=== PATIENT | male | born 1975 | race Caucasian/White ===

== ENCOUNTER 2021-01-13 13:40 | Emergency (ER) | payer MEDICAID, SELFPAY ==
[2021-01-13 13:41] VITALS: BP 112/68; PULSE 84; RESP 16; TEMP 36.6; O2SAT 98; BMI 25.8
--- NOTE | 2021-01-13 13:43 | XR_ITS ---
PROCEDURE: XR CHEST 2V CLINICAL HISTORY: right lower side rib pain COMPARISON: No exams were available for comparison FINDINGS: The cardiomediastinal silhouette and pulmonary vascularity are within normal limits. The lungs are clear without infiltrates, suspicious nodules, or pleural effusions. No acute bony abnormalities. IMPRESSION: No acute findings. Dictated by: Bert Mcguire MD 01/13/2021 14:08 Bert Mcguire MD in [place] 01/13/2021 14:08
--- NOTE | 2021-01-13 13:54 | [facility].EDGENADL ---
ED Disposition Clinical Impression: Chest wall pain Disposition: Home, Self-Care Condition on Discharge: Good Additional Instructions: Return to the emergency room for worsening pain fever cough or any other concerns within the next 8 hours otherwise follow-up with your primary care physician within the next few days Prescriptions: Naproxen Sodium [Naproxen 220mg Tab] 220 mg PO TID 10 Days #20 tab Referrals: Provider,Referral, [Primary Care Provider] - - Critical Care Critical Care Time: No Attestation: On 01/13/21, the high probability of a clinically significant, sudden or life threatening deterioration of the following system(s) required my full and direct attention, intervention and personal management. The time I documented below is in addition to time spent performing reported procedures but includes the following listed in this critical care notation. Medical Decision Making - Medical Records Medical records reviewed: Yes: I reviewed the patient's medical records. - Ronn Inquiry Pt receiving controlled substance: No Vital Signs: 01/13/21 13:41 Temperature 97.8 F Temperature Source Oral Pulse Rate [Radial] 84 Respiratory Rate 16 Blood Pressure [Right Arm] 112/68 Blood Pressure Mean [Right Arm] 82 Blood Pressure Position [Right Arm] Sitting 02 Sat by Pulse Oximetry 98 Oxygen Delivery Method Room Air Orders (Tests/Meds): ED MEDICATIONS Discontinued Medications Generic Name Dose Route Start Last Admin Trade Name Laciq PRN Reason Stop Dose Admin Ketorolac Tromethamine 30 mg 01/13/21 13:43 01/13/21 13:50 Ketorolac 30mg/Ml Vial IV 01/13/21 13:44 30 mg ONCE ONE Administration Lidocaine 1 each 01/13/21 13:44 01/13/21 13:50 Lidocaine 5% Transdermal Patch TP 01/13/21 13:45 1 each ONCE ONE Administration Medical Decision Narrative: 45-year-old male with right lower chest wall pain. He has no acute distress nontoxic-appearing. He has clear breath sounds bilaterally. Chest x-ray was obtained to assess for occult pneumothorax versus displaced rib fracture. No other evidence of pulmonary embolism, pneumonia, myocardial infarction or any other emergency based on history exam and gestalt. Given Toradol for pain Chest x-ray shows no deformed rib fracture and no occult pneumothorax. On reexam he is feeling better after the Toradol. Plan to discharge with incentive spirometry and NSAIDs for pain and return precautions General Adult HPI - General Chief complaint: PAIN Stated complaint: pain Time Seen by Provider: 01/13/21 13:45 Mode of Arrival: EMS Limitations: No Limitations Description of Symptoms (Recalled from ER Triage Doc. by RN): to ed per squad pt states bent over lastnight and came up and heard a pop rt side rib area. c/o sob, pain worse with inspiration and movement - History of Present Illness HPI narrative: Presents with right-sided lower chest wall pain. He says that last night he turned and felt a pop. Since that point he has been having tenderness and pain to that right side dull constant worse with breathing. Worse to touch. No fever chills cough hemoptysis prior pulmonary embolism. Pain is nonexertional no diaphoresis or radiation of the pain. Pain is sharp in nature. Onset (ago): day(s) (1) Location: chest Radiation: non-radiation Severity: mild Quality: sharp Consistency: constant - Related Data Previous Rx's Medication Instructions Recorded Naproxen Sodium [Naproxen 220mg 220 mg PO TID 10 Days #20 tab 01/13/21 Tab] Allergies Allergy/AdvReac Type Severity Reaction Status Date / Time From [facility] Allergy Unknown HEADACHES/NAUSEA Uncoded 08/28/17 14:40 VOMITING [facility] History - Hepatitis A Screen Drug use history?: No High risk sexual behaviors?: No History of sexually transmitted infection?: No Currently employed?: No Childcare worker?: No Do you have indoor plumbing?: Yes Do you have electricity?: Yes Attest
[2021-01-13 14:43] VITALS: BP 98/60; PULSE 78; RESP 16; TEMP 36.6; O2SAT 98
== END 2021-01-13 14:44 | disposition home or self-care (01) ==
PROVIDERS: Emergency Provider Emergency Medicine; PCP Family Medicine
DX: R07.89 Other chest pain (principal)
CPT/HCPCS: 71046; 96374; 99282